=== PATIENT | female | born 1955 | race Caucasian/White ===

== ENCOUNTER 2017-06-13 15:49 | Emergency (ER) | payer OTHER ==
[~2017-06-13] VITALS: Wt 70.0 kg
[~2017-06-13 15:49] MED LIST: ASPI-650 PO; DIAZ10TA4 PO; HUMULOG INSULIN; LANTUS SC; LISI10TA2; METH500T8; NEURONTIN; PAIN MEDICINE PO; PRA40
--- NOTE | 2017-06-13 18:10 | ERD ---
ER Documentation Chief Complaint Chief Complaint REDNESS TO R EYE AREA HPI This 62-year-old female presents to emergency department with blood red conjunctiva, denies injury, reports was in the shower got soap in her eyes and started rubbing it, she noticed her eye was "blood red" after getting out of the shower. Patient reports tenderness, denies pain, discharge, change in vision, family denies change in behavior, or alteration in function, denies headache. ROS All systems reviewed and are negative except as per history of present illness. Medications Home Meds Reported Medications [Pain Medicine] No Conflict Check, PO 12/15/15 Aspirin (Aspirin) 81 Mg Tablet, 81 MG PO DAILY 08/08/12 Diazepam* (Diazepam*) 10 Mg Tablet, 10 MG PO DAIILY 08/08/12 Pravastatin Sodium* (Pravachol*) 40 Mg Tablet 08/08/12 Methocarbamol* (Methocarbamol*) 500 Mg Tablet 08/08/12 Lisinopril* (Lisinopril*) 10 Mg Tablet 08/08/12 [Neurontin] No Conflict Check 10/27/10 [Lantus ] No Conflict Check, 40 UNITS SC BID, 0 Refills 10/27/10 [Humulog Insulin] No Conflict Check, 0 Refills 10/27/10 Allergies Allergies: Coded Allergies: No Known Drug Allergies (Verified Allergy, Mild, 12/06/12) PMhx/Soc History of Surgery: Yes (HYSTERECTOMY, BACK SURGERY, CHOLECYSECTOMY) Anesthesia Reaction: No Hx Neurological Disorder: Yes (unable to walk no balance) Hx Respiratory Disorders: No Hx Cardiac Disorders: Yes (HYPERTENSION, HYPERLIPIDEMIA) Hx Psychiatric Problems: No Hx Miscellaneous Medical Probl: No Hx Alcohol Use: No Hx Substance Use: No Hx Tobacco Use: No Physical Exam Vitals Vital Signs Date Time Temp Pulse Resp B/P Pulse Ox O2 Delivery O2 Flow Rate FiO2 06/13/17 15:54 98.9 71 18 125/70 99 Vitals stable, triage notes reviewed Physical Exam Const: Well-nourished, well-appearing, well-hydrated 62-year-old female in no acute distress Head: Atraumatic Eye Exam: Visual Acuity: Right eye 20/40, left eye 20/50, both eyes 20/30 without corrective lenses Visual Cuadra: Intact in all four quadrants bilaterally Lac ducts/glands: No swelling Lids w/ evertion: Normal, no foreign body Conj/Paradox: Blood red conjunctiva right lateral canthus extending across to I midline. ENT: Normal External Ears, Nose and Mouth. Neck: Full range of motion..~ No meningismus. Resp: Clear to auscultation bilaterally Cardio: Regular rate and rhythm, no murmurs Abd: Soft, non tender, non distended. Normal bowel sounds Skin: No petechiae or rashes Back: No midline or flank tenderness Ext: No cyanosis, or edema Neuro: Alert and oriented Face: EOMI, face and pharynx with normal sensation and function Motor: Normal strength throughout Sensation: Normal sensation throughout Speech: Normal Cerebel: Normal coordination Normal gait Normal finger to nose Psych: Normal Mood and Affect Procedures/MDM This 62-year-old female presents to emergency department with blood red conjunctiva extending from lateral canthus to midline pupil, denies any trauma, injury, vision loss, discharge, or pain. Emergency room course includes history and physical exam, Snellen eye evaluation, right eye 20/40, left eye 20/ 50, both eyes 20/30. Neurologic exam negative for any changes. She has a subconjunctival hemorrhage from rubbing her eye in the shower today. Plan to discharge patient home with out any needed pharmacology, teaching handouts provided, return to emergency department for changes in symptoms, headache, discharge, change in vision, follow-up with primary care physician. Patient is stable with no new complaints during ER course, clinically there is no current evidence to suggest orbit trauma, angle-closure glaucoma, chemical injury, corneal ulcer, foreign body, pulmonary embolism or any other emergent condition appearing to require further evaluation or hospitalization. I feel the patient is stable for discharge at this time. I have discussed results, examination findings, the treatment plan with the patient and family present prior to discharge. Indications for emergent reevaluation, side effects of medication were also discussed. All questions were answered. Patient verbalizes understanding and agrees with plan of care. Departure Diagnosis: Primary Impression: Subconjunctival hemorrhage of right eye Condition: Good Patient Instructions: Subconjunctival Hemorrhage Referrals: [facility] () [facility] Additional Instructions: Thank you for for coming to Thank you for for coming to [facility] for your care today. Please ask your nurse or provider if you have questions about your care today and do not leave until all your questions have been answered. Please use any medications given as directed and follow-up with your doctor (or the doctor you were referred to) in the next 2-3 days. If you do not have a primary care doctor you may follow up at the [facility] (listed below). You may also use motrin and tylenol as needed for fever and/or pain unless instructed otherwise by your provider or nurse. Indications for more urgent follow-up have been discussed, but you may return to the Emergency Department at ANY time for any worrisome or worsening symptoms. If you have abdominal pain, please know that no test or exam you received is perfect and you should follow up within 8 hours for continued pain. If you had any imaging studies today, such as an X-Ray or CT Scan, these studies will be reviewed later by a radiologist. You will be called if there are important findings that were not identified today, so make sure the contact information you provided at registration is correct. If you received any narcotic pain control medicine today, such as Vicodin, Morphine or Dilaudid, your coordination and judgment may be affected for a number of hours. Please do not drive or operate heavy machinery, and you may want someone to assist you at home. If you were given a prescription for narcotic medication, be aware that it is very addictive- use sparingly and only if necessary. For your care today. Please ask your nurse or provider if you have questions about your care today and do not leave until all your questions have been answered. Please use any medications given as directed and follow-up with your doctor (or the doctor you were referred to) in the next 2-3 days. If you do not have a primary care doctor you may follow up at the [facility] [place] ( listed below). You may also use motrin and tylenol as needed for fever and/or pain unless instructed otherwise by your provider or nurse. Indications for more urgent follow-up have been discussed, but you may return to the Emergency Department at ANY time for any worrisome or worsening symptoms. If you have abdominal pain, please know that no test or exam you received is perfect and you should follow up within 8 hours for continued pain. If you had any imaging studies today, such as an X-Ray or CT Scan, these studies will be reviewed later by a radiologist. You will be called if there are important findings that were not identified today, so make sure the contact information you provided at registration is correct. If you received any narcotic pain control medicine today, such as Vicodin, Morphine or Dilaudid, your coordination and judgment may be affected for a number of hours. Please do not drive or operate heavy machinery, and you may want someone to assist you at home. If you were given a prescription for narcotic medication, be aware that it is very addictive- use sparingly and only if necessary. BALTA KINSEY Jun 13, 2017 18:10
== END 2017-06-13 18:28 | disposition home or self-care (01) ==
LOC: FTE 15:49
DX: H11.31 Conjunctival hemorrhage, right eye (principal); I10 Essential (primary) hypertension; Z79.82 Long term (current) use of aspirin
CPT/HCPCS: 99282

== ENCOUNTER 2018-10-23 12:36 | Emergency (ER) | payer OTHER ==
[~2018-10-23] VITALS: Wt 66.1 kg
[2018-10-23] MEDS ORDERED: ACETAMINOPHEN 325 MG TAB PO STA (12:43)
[2018-10-23] MEDS ORDERED: CEFTRIAXONE 1 GM/50 ML (PMX) 50 ML IVPB STA (12:43)
[2018-10-23] MEDS ORDERED: AZITHROMYCIN 500MG/NS (PMX) 250 ML IV STA (12:43)
[2018-10-23] MEDS ORDERED: SODIUM CHLORIDE 0.9% 1L BAG IV* STA (13:02)
[2018-10-23] MEDS ORDERED: NORT25CA PO (13:49)
[2018-10-23] MEDS ORDERED: INSU100C SQ ×3 (13:50→13:51)
[2018-10-23] MEDS ORDERED: ERGO500013 PO (13:51)
[2018-10-23] MEDS ORDERED: PRAV40TA76 PO (13:52)
[2018-10-23] MEDS ORDERED: DIAZ5TAB4 PO (13:52)
[2018-10-23] MEDS ORDERED: ASPI-903 PO (13:52)
[2018-10-23] MEDS ORDERED: GABA400C14 PO (13:52)
[2018-10-23] MEDS ORDERED: LISI10TA2 PO (13:53)
[2018-10-23] MEDS ORDERED: OMEP40CA6 PO (13:53)
[2018-10-23] MEDS ORDERED: INSU100I33 SC (13:54)
--- NOTE | 2018-10-23 15:25 | ERD ---
ER Documentation Chief Complaint Chief Complaint COUGH/SOB X3 WEEKS, FEVER HPI Patient is a 63-year-old female with hypertension and diabetes who presents with a cough. She has had a productive cough for the past 3 weeks. She has had fevers which started yesterday. She tried diabetic Tussin for the cough. She has not had any recent antibiotics. Upon review of old medical records this is the patient's third visit to the ER since 2010. ROS All systems reviewed and are negative except as per history of present illness. Medications Home Meds Reported Medications Insulin Glargine,Hum.rec.anlog (Basaglar Kwikpen U-100) 100 Unit/1 Ml Insuln.pen, 30 UNIT SC QAM, EA 10/23/18 Omeprazole* (Omeprazole*) 40 Mg Capsule.dr, 40 MG PO AC BREAKFAST, #30 CAP 10/23/18 Lisinopril* (Lisinopril*) 10 Mg Tablet, 10 MG PO DAILY, #30 TAB 10/23/18 Aspirin* (Aspirin* Chew) 81 Mg Tab.chew, 81 MG PO DAILY, TAB.CHEW 10/23/18 Pravastatin Sodium* (Pravastatin Sodium*) 40 Mg Tablet, 40 MG PO HS, TAB 10/23/18 Gabapentin* (Gabapentin*) 400 Mg Capsule, 400 MG PO TID, #90 CAP 10/23/18 Diazepam* (Diazepam*) 5 Mg Tablet, 7.5 MG PO QHS PRN for ANXIETY, TAB 10/23/18 Ergocalciferol (Vitamin D2) (VITAMIN D2) 50,000 Unit Capsule, 57045 UNIT PO WEEKLY, CAP 10/23/18 Insulin Lispro (Humalog) 100 Unit/1 Ml Cartridge, 5 UNIT SQ AC DINNER, EA 10/23/18 Insulin Lispro (Humalog) 100 Unit/1 Ml Cartridge, 5 UNIT SQ AC LUNCH, EA 10/23/18 Insulin Lispro (Humalog) 100 Unit/1 Ml Cartridge, 10 UNIT SQ QAM, EA 10/23/18 Nortriptyline Hcl* (Nortriptyline Hcl*) 25 Mg Capsule, 25 MG PO HS, CAP 10/23/18 Discontinued Reported Medications [Pain Medicine] No Conflict Check, PO 12/15/15 Aspirin (Aspirin) 81 Mg Tablet, 81 MG PO DAILY 08/08/12 Diazepam* (Diazepam*) 10 Mg Tablet, 10 MG PO DAIILY 08/08/12 Pravastatin Sodium* (Pravachol*) 40 Mg Tablet 08/08/12 Methocarbamol* (Methocarbamol*) 500 Mg Tablet 08/08/12 Lisinopril* (Lisinopril*) 10 Mg Tablet 08/08/12 [Neurontin] No Conflict Check 10/27/10 [Lantus ] No Conflict Check, 40 UNITS SC BID, 0 Refills 10/27/10 [Humulog Insulin] No Conflict Check, 0 Refills 10/27/10 Allergies Allergies: Coded Allergies: No Known Drug Allergies (Verified Allergy, Mild, 12/06/12) PMhx/Soc History of Surgery: Yes (HYSTERECTOMY, BACK SURGERY, CHOLECYSECTOMY) Anesthesia Reaction: No Hx Neurological Disorder: Yes (unable to walk no balance) Hx Respiratory Disorders: No Hx Cardiac Disorders: Yes (HYPERTENSION, HYPERLIPIDEMIA) Hx Psychiatric Problems: No Hx Miscellaneous Medical Probl: Yes (dm) Hx Alcohol Use: No Hx Substance Use: No Hx Tobacco Use: No Smoking Status: Never smoker FmHx Family History: No diabetes Physical Exam Vitals Vital Signs Date Temp Pulse Resp B/P (MAP) Pulse Ox O2 O2 Flow FiO2 Time Delivery Rate 10/23/18 99.4 104 18 103/71 97 Room Air 14:29 (82) 10/23/18 101.0 13:34 10/23/18 101.0 125 20 101/51 97 12:40 (68) Physical Exam Const: Mild distress Head: Atraumatic Eyes: Normal Conjunctiva ENT: Normal External Ears, Nose and Mouth. Neck: Full range of motion. No meningismus. Resp: Decreased breath sounds bilaterally Cardio: Tachycardic rate without murmur Abd: Soft, non tender, non distended. Normal bowel sounds Skin: No petechiae or rashes Back: No midline or flank tenderness Ext: No cyanosis, or edema Neur: Awake and alert Psych: Normal Mood and Affect Result Diagram: 10/23/18 1254 10/23/18 1254 Results 24 hrs Laboratory Tests Test 10/23/18 12:54 10/23/18 13:01 10/23/18 13:20 10/23/18 15:20 White Blood Count 10.7 10^3/ul Red Blood Count 3.81 10^6/ul Hemoglobin 11.3 g/dl Hematocrit 35.2 % Mean Corpuscular 92.4 fl Volume Mean Corpuscular 29.7 pg Hemoglobin Mean Corpuscular 32.1 g/dl Hemoglobin Concen t Red Cell 13.2 % Distribution Width Platelet Count 228 10^3/UL Mean Platelet 10.4 fl Volume Immature 0.500 % Granulocytes % Neutrophils % 80.2 % Lymphocytes % 10.2 % Monocytes % 8.9 % Eosinophils % 0.0 % Basophils % 0.2 % Nucleated Red 0.0 /100WBC Blood Cells % Immature 0.050 10^3/ul Granulocytes # Neutrophils # 8.6 10^3/ul Lymphocytes # 1.1 10^3/ul Monocytes # 1.0 10^3/ul Eosinophils # 0.0 10^3/ul Basophils # 0.0 10^3/ul Nucleated Red 0.0 10^3/ul Blood Cells # Prothrombin Time 12.7 Sec Prothrombin Time 1.0 Ratio INR International 0.94 Normalized Ratio Activated 44.6 Sec Partial Thrombopl ast Time Sodium Level 137 mmol/L Potassium Level 3.6 mmol/L Chloride Level 100 mmol/L Carbon Dioxide 27 mmol/L Level Anion Gap 10 Blood Urea 17 mg/dl Nitrogen Creatinine 0.85 mg/dl Est Glomerular > 60 mL/min Filtrat Rate mL/min Glucose Level 231 mg/dl Calcium Level 9.0 mg/dl Total Bilirubin 0.5 mg/dl Direct Bilirubin 0.00 mg/dl Indirect 0.5 mg/dl Bilirubin Aspartate Amino 27 IU/L Transf (AST/SGOT) Alanine 25 IU/L Aminotransferase (ALT/SGPT) Alkaline 120 IU/L Phosphatase Troponin I < 0.012 ng/ml Total Protein 7.7 g/dl Albumin 4.0 g/dl Globulin 3.70 g/dl Albumin/Globulin 1.08 Ratio POC Venous 2.4 mmol/L 2.1 mmol/L Lactate Urine Color STRAW Urine Clarity CLEAR Urine pH 6.0 Urine Specific 1.006 [place] Urine Ketones NEGATIVE mg/dL Urine Nitrite NEGATIVE mg/dL Urine Bilirubin NEGATIVE mg/dL Urine NEGATIVE mg/dL Urobilinogen Urine Leukocyte NEGATIVE Martina/ul Esterase Urine Hemoglobin NEGATIVE mg/dL Urine Glucose NEGATIVE mg/dL Urine Total NEGATIVE mg/dl Protein Current Medications Medications Dose Sig/Claude Start Time Status Last (Trade) Ordered Route PRN Stop Time Admin Dose Reason Admin 650 mg ONCE STAT 10/23/18 DC 10/23/18 Acetaminophen PO 12:43 13:34 (Tylenol 10/23/18 12:44 Tab) Ceftriaxone 50 ml @ ONCE STAT 10/23/18 DC 10/23/18 Sodium 100 mls/hr IVPB 12:43 13:33 10/23/18 13:12 Azithromycin 250 ml @ ONCE STAT 10/23/18 DC 10/23/18 250 mls/hr IV 12:43 14:42 10/23/18 13:42 Sodium 1,980 ml BOLUS OVER 2 10/23/18 DC 10/23/18 Chloride HOURS STAT 13:02 13:34 (NS) IV* 10/23/18 13:03 Procedures/MDM Chest x-ray read by radiology. EKG read by me: Rate/Rhythm: Tachycardia Intervals: Normal Impression: Tachycardia without ischemia Sepsis Documentation: Patient's infectious symptoms have not stabilized and the patient is at risk of rapid decompensation. The patient will be admitted for careful hydration, antibiotic therapy, and infectious source control. SEVERE SEPSIS CRITERIA: Infectious source: Pneumonia End organ damage indicated by: Lactate greater than 2 SEPSIS MANAGEMENT Time of recognition of sepsis: 1301. Time of recognition of severe sepsis: 1301. Time of recognition of septic shock: No septic shock at this time. 3 HOUR BUNDLE Blood cultures x 2 before broad-spectrum antibiotics: Yes 30 ml/kg NS bolus completed Initial lactate 2.4 Repeat lactate 2.1 SEPTIC SHOCK ASSESSMENT: No lactic acid > 4.0 No persistent hypotension (SBP < 90 or 40 mmHg drop, MAP < 65) despite 30 mL/kg IV fluid bolus VOLUME REASSESSMENT FOR SEPTIC SHOCK: No septic shock PERSISTENT HYPOTENSION TREATMENT: Comfort care no Central line not Required Vasopressor started not required I considered further perfusion assessment with CVP measurement, SCVO2, bedside ultrasound volume assessment, passive leg raise, trial of further fluid bolus. And proceeded with 30 ml/kg fluid bolus of NSS, broad spectrum antibiotics, and admission. The patient will be transferred to [facility] with Dr. Farley is the accepting physician as the patient has [employer] insurance. CRITICAL CARE Critical care time 35 minutes Emergent fluid management while maintaining close respiratory support. Provi jerson of immediate and broad-spectrum antibiotic therapy. Simultaneous assessment for possible sources in order to direct targeted therapy. Consideration for invasive and chemical support to prevent cardiopulmonary collapse. Critical care time is independent of procedures performed. Departure Diagnosis: Primary Impression: Severe sepsis Additional Impression: Pneumonia Pneumonia type: due to unspecified organism Laterality: unspecified laterality Lung location: unspecified part of lung Qualified Codes: J18.9 - Pneumonia, unspecified organism Condition: Serious VICKI CLEMENT MD Oct 23, 2018 15:25
[2018-10-23 16:41] VITALS: BP 117/73; PULSE 103; RESP 17
== END 2018-10-23 18:10 | disposition short-term general hospital (02) ==
LOC: E/R 12:36
DX: A41.9 Sepsis, unspecified organism (principal); I10 Essential (primary) hypertension; E11.9 Type 2 diabetes mellitus without complications; R65.20 Severe sepsis without septic shock; J18.9 Pneumonia, unspecified organism; Z79.4 Long term (current) use of insulin; Z79.82 Long term (current) use of aspirin
CPT/HCPCS: 71045; 80053; 81003; 83605; 84484; 85025; 85610; 85730; 87040; 87086; 87400; 93005; J0456; J0696; J7030; Z7610; 36415; 96374; 96375

== ENCOUNTER 2018-12-14 22:35 | Emergency (ER) | payer OTHER ==
[~2018-12-14] VITALS: Ht 147.3 cm; Wt 67.3 kg
[~2018-12-14 22:35] MED LIST changes: -ASPI-650 PO; +ASPI-903 PO; -DIAZ10TA4 PO; +DIAZ5TAB4 PO; +ERGO500013 PO; +GABA400C14 PO; -HUMULOG INSULIN; +INSU100C SQ; +INSU100I33 SC; -LANTUS SC; -LISI10TA2; +LISI10TA2 PO; -METH500T8; -NEURONTIN; +NORT25CA PO; +OMEP40CA6 PO; -PAIN MEDICINE PO; -PRA40; +PRAV40TA76 PO
[2018-12-14 22:41] VITALS: Ht 147.3 cm; Wt 67.3 kg
[2018-12-15] MEDS ORDERED: SOD CHLORIDE 0.9% 500 ML IV STA (02:56)
--- NOTE | 2018-12-15 05:33 | ERD ---
ER Documentation Chief Complaint Chief Complaint weakness and near syncope at home X 30 minutes ago HPI This is a 63-year-old malignancy. Annual with her . Apparently she was also very hypotensive with positive blood pressure. She denies any fevers chills nausea vomiting. Denies any chest pain. Did complain of mild palp itations. No fevers or chills. No focal neurologic complaints. ROS All systems reviewed and are negative except as per history of present illness. Medications Home Meds Reported Medications Insulin Glargine,Hum.rec.anlog (Basaglar Kwikpen U-100) 100 Unit/1 Ml Insuln.pen, 30 UNIT SC QAM, EA 10/23/18 Omeprazole* (Omeprazole*) 40 Mg Capsule.dr, 40 MG PO AC BREAKFAST, #30 CAP 10/23/18 Lisinopril* (Lisinopril*) 10 Mg Tablet, 10 MG PO DAILY, #30 TAB 10/23/18 Aspirin* (Aspirin* Chew) 81 Mg Tab.chew, 81 MG PO DAILY, TAB.CHEW 10/23/18 Pravastatin Sodium* (Pravastatin Sodium*) 40 Mg Tablet, 40 MG PO HS, TAB 10/23/18 Gabapentin* (Gabapentin*) 400 Mg Capsule, 400 MG PO TID, #90 CAP 10/23/18 Diazepam* (Diazepam*) 5 Mg Tablet, 7.5 MG PO QHS PRN for ANXIETY, TAB 10/23/18 Ergocalciferol (Vitamin D2) (VITAMIN D2) 50,000 Unit Capsule, 92898 UNIT PO WEEKLY, CAP 10/23/18 Insulin Lispro (Humalog) 100 Unit/1 Ml Cartridge, 5 UNIT SQ AC DINNER, EA 10/23/18 Insulin Lispro (Humalog) 100 Unit/1 Ml Cartridge, 5 UNIT SQ AC LUNCH, EA 10/23/18 Insulin Lispro (Humalog) 100 Unit/1 Ml Cartridge, 10 UNIT SQ QAM, EA 10/23/18 Nortriptyline Hcl* (Nortriptyline Hcl*) 25 Mg Capsule, 25 MG PO HS, CAP 10/23/18 Allergies Allergies: Coded Allergies: No Known Drug Allergies (Verified Allergy, Mild, 12/06/12) PMhx/Soc History of Surgery: Yes (HYSTERECTOMY, BACK SURGERY, CHOLECYSECTOMY) Anesthesia Reaction: No Hx Neurological Disorder: Yes (unable to walk no balance) Hx Respiratory Disorders: No Hx Cardiac Disorders: Yes (HYPERTENSION, HYPERLIPIDEMIA) Hx Psychiatric Problems: No Hx Miscellaneous Medical Probl: No Hx Alcohol Use: No Hx Substance Use: No Hx Tobacco Use: No Smoking Status: Never smoker Physical Exam Vitals Vital Signs Date Temp Pulse Resp B/P (MAP) Pulse Ox O2 O2 Flow FiO2 Time Delivery Rate 12/15/18 90 23 122/71 99 Room Air 05:26 (88) 12/15/18 97 18 123/68 98 Room Air 03:06 (86) 12/14/18 97.2 89 18 97/60 (72) 97 22:41 Physical Exam Const: No acute distress Head: Atraumatic Eyes: Normal Conjunctiva ENT: Normal External Ears, Nose and Mouth. Neck: Full range of motion. No meningismus. Resp: Clear to auscultation bilaterally Cardio: Regular rate and rhythm, no murmurs Abd: Soft, non tender, non distended. Normal bowel sounds Skin: No petechiae or rashes Back: No midline or flank tenderness Ext: No cyanosis, or edema Neur: Awake and alert Psych: Normal Mood and Affect Result Diagram: 12/15/18 0310 12/15/18 0310 Results 24 hrs Laboratory Tests Test 12/15/18 03:10 12/15/18 03:26 White Blood Count 7.9 10^3/ul Red Blood Count 4.12 10^6/ul Hemoglobin 12.2 g/dl Hematocrit 37.7 % Mean Corpuscular Volume 91.5 fl Mean Corpuscular Hemoglobin 29.6 pg Mean Corpuscular Hemoglobin Concent 32.4 g/dl Red Cell Distribution Width 12.9 % Platelet Count 226 10^3/UL Mean Platelet Volume 10.8 fl Immature Granulocytes % 0.400 % Neutrophils % 77.7 % Lymphocytes % 14.9 % Monocytes % 6.6 % Eosinophils % 0.0 % Basophils % 0.4 % Nucleated Red Blood Cells % 0.0 /100WBC Immature Granulocytes # 0.030 10^3/ul Neutrophils # 6.1 10^3/ul Lymphocytes # 1.2 10^3/ul Monocytes # 0.5 10^3/ul Eosinophils # 0.0 10^3/ul Basophils # 0.0 10^3/ul Nucleated Red Blood Cells # 0.0 10^3/ul Sodium Level 139 mmol/L Potassium Level 4.5 mmol/L Chloride Level 102 mmol/L Carbon Dioxide Level 27 mmol/L Anion Gap 10 Blood Urea Nitrogen 23 mg/dl Creatinine 0.77 mg/dl Est Glomerular Filtrat Rate mL/min > 60 mL/min Glucose Level 271 mg/dl Calcium Level 9.4 mg/dl Troponin I < 0.012 ng/ml Bedside Glucose 268 mg/dL Current Medications Medications Dose Sig/Claude Start Time Status Last (Trade) Ordered Route PRN Stop Time Admin Dose Reason Admin Sodium 500 ml @ Q1H STAT 12/15/18 DC 12/15/18 Chloride 500 mls/hr IV 02:56 12/15/18 03:19 03:55 Procedures/MDM EKG: Rate/Rhythm: [Normal Sinus Rhythm] QRS, ST, T-waves: [No changes consistent w/ acute ischemia] Impression: [No evidence of ischemia or arrhythmia] Chest X-ray 1V Interpreted by me: Soft Tissue: No acute abnormalities Bones: No acute abnormalities Mediastinum/Cardiac Silhouette/Lungs: [No acute abnormalities] Medical decision making: Patient's syncopal symptoms are unstable at this time and require inpatient workup. No evidence of PE or dissection at this time but occult ischemia or fatal dysrhythmia cannot be ruled out. Departure Diagnosis: Primary Impression: Near syncope Condition: Serious RITU PEREZ December 15, 2018 05:33
[2018-12-15] MEDS ORDERED: INSU100I12 SQ (06:33)
[2018-12-15] MEDS ORDERED: GABAPENTIN 100 MG CAP PO ONE (08:00)
--- NOTE | 2018-12-15 09:00 | PDOCDIS ---
Discharge Instructions CONDITION [id number] Patient Condition: [id number] Good HOME CARE INSTRUCTIONS: [id number] Your diet recommendation is: [id number] diabetic ACTIVITY: [id number] Activity Restrictions: [id number] Slowly Increase Activity FOLLOW UP/APPOINTMENTS Follow-up Plan pcp 1 week PRAVEEN CASTREJON MD December 15, 2018 09:00
--- NOTE | 2018-12-15 09:53 | CONS ---
DATE OF ADMISSION: 12/14/2018 DATE OF CONSULTATION: 12/15/2018 CHIEF COMPLAINT: Near syncope. HISTORY OF PRESENT ILLNESS: A 63-year-old female was brought in by the family members with a complai nt of lightheadedness and near syncope while she was using the restroom. The patient was apparently pale and diaphoretic. On review of systems, she denies chest pain. No shortness of breath. No foca l weakness or numbness. No rg syncope. Her checked her blood pressure at the time of the incident and it was in the 60s. He decided to bring her to the emergency room. Initial evaluation revealed a blood pressure of 97/60 with a pulse of 89. Patient received IV fluids with improvement i n her blood pressure. White blood cell count was 7.9, hemoglobin was 12.2. The patient takes Lisino pril 10 mg daily. PAST MEDICAL HISTORY: 1. Hypertension. 2. Type 2 diabetes mellitus. 3. Diabetic nephropathy. 4. Hyperlipidemia. MEDICATIONS PRIOR TO ADMISSION: 1. Aspirin 81 mg daily. 2. Diazepam 7.5 mg at bedtime as needed. 3. Gabapentin 400 mg 3 times daily. 4. Insulin 30 units subcu. q.a.m. 5. Nortriptyline 25 mg p.o. at bedtime. 6. Atorvastatin 40 mg p.o. at bedtime. SOCIAL HISTORY: Patient lives at home. She denies tobacco or alcohol use. PHYSICAL EXAMINATION: GENERAL: Well-developed, well-nourished female who, in no apparent distress. VITAL SIGNS: Blood pressure 118/62, pulse 90, respiration 17. Saturation 100%. HEENT: Extraocular muscles are intact. Pupils are equal and reactive to light bilaterally. Sclerae are anicteric. Oropharynx is clear and moist. NECK: Supple, no JVD, no carotid bruits. LUNGS: Clear to auscultation bilaterally. CARDIAC: Regular rate and rhythm. No murmurs, rubs or gallops. ABDOMEN: Soft, nontender, nondistended, normoactive bowel sounds. EXTREMITIES: No clubbing, cyanosis, or edema. NEUROLOGICAL: Grossly nonfocal. IMAGING STUDIES: Chest x-ray was unremarkable. CAT scan of the brain showed mild generalized cerebr al and cerebellar volume loss without evidence of intracranial masses or hemorrhage. ASSESSMENT: 1. A 63-year-old female with a near syncopal episode due to hypotension, resolved following hydratio n. 2. Type 2 diabetes mellitus. 3. Peripheral neuropathy. PLAN: 1. Discharge home. 2. Discontinue Lisinopril. 3. Follow up with primary care provider for repeat blood pressure check off lisinopril. Dictated By: PRAVEEN KAUFMAN/NTS Conf#: [id number] DID#: [id number] CC: ANGELA NEW MD;*EndCC*
[2018-12-15 10:21] VITALS: BP 118/79; PULSE 93; RESP 17
== END 2018-12-15 10:22 | disposition home or self-care (01) ==
LOC: E/R 22:35 → CANRESERV 12-15 09:20 → E/R 12-15 10:22
DX: R55 Syncope and collapse (principal); I10 Essential (primary) hypertension; E11.9 Type 2 diabetes mellitus without complications; Z79.4 Long term (current) use of insulin
CPT/HCPCS: 36415; 70450; 71045; 80048; 82962; 84484; 85025; 93005; J7040; Z7502; Z7610

== ENCOUNTER 2019-02-14 13:17 | Emergency (ER) | payer OTHER ==
[~2019-02-14] VITALS: Ht 147.3 cm; Wt 66.8 kg
[~2019-02-14 13:17] MED LIST changes: -INSU100C SQ; +INSU100I12 SQ; -LISI10TA2 PO
[2019-02-14 13:23] VITALS: RESP 17; Ht 147.3 cm; Wt 66.8 kg
[2019-02-14] MEDS ORDERED: IBUPROFEN 800 MG TAB PO ONE (14:00)
--- NOTE | 2019-02-14 14:14 | ERD ---
ER Documentation Chief Complaint Chief Complaint FEVER AT HOME, BODYACHES, THROAT PAIN, MOUTH BLISTERS, ONSET 3 DAYS HPI 64-year-old female who presents with her family. The patient is approximately 3 to 5 days of symptoms that include cough congestion sore throat, subjective fevers and generalized malaise. She was seen in urgent care several days ago and started on amoxicillin for unclear bacterial infection. Patient however has persistent symptoms. The patient is also noted a blister on the roof of her soft palate. No other sick contacts, no lesions to the palms or soles. Patient denies any significant shortness of breath. She does have a remote history of pneumonia. ROS All systems reviewed and are negative except as per history of present illness. Medications Home Meds Active Scripts Phenol* (Chloraseptic* [place]) 177 Ml [place].pump, 2 SPRAY MT Q2H PRN for SORE THROAT, #1 BOTTLE Prov:YNES ARCE MD 02/14/19 Ibuprofen* (Motrin*) 600 Mg Tab, 600 MG PO Q6H PRN for PAIN AND OR ELEVATED TEMP, #30 TAB Prov:YNES ARCE MD 02/14/19 Reported Medications Insulin Lispro (Humalog Kwikpen U-100) 100 Unit/1 Ml Insuln.pen, 0 SQ AC A, EA SLIDING SCALE 12/15/18 Insulin Glargine,Hum.rec.anlog (Basaglar Kwikpen U-100) 100 Unit/1 Ml Insuln.pen, 30 UNIT SC QAM, EA 10/23/18 Omeprazole* (Omeprazole*) 40 Mg Capsule.dr, 40 MG PO AC BREAKFAST, #30 CAP 10/23/18 Aspirin* (Aspirin* Chew) 81 Mg Tab.chew, 81 MG PO DAILY, TAB.CHEW 10/23/18 Pravastatin Sodium* (Pravastatin Sodium*) 40 Mg Tablet, 40 MG PO HS, TAB 10/23/18 Gabapentin* (Gabapentin*) 400 Mg Capsule, 400 MG PO TID, #90 CAP 10/23/18 Diazepam* (Diazepam*) 5 Mg Tablet, 7.5 MG PO QHS PRN for ANXIETY, TAB 10/23/18 Ergocalciferol (Vitamin D2) (VITAMIN D2) 50,000 Unit Capsule, 12552 UNIT PO WEEKLY, CAP 10/23/18 Nortriptyline Hcl* (Nortriptyline Hcl*) 25 Mg Capsule, 25 MG PO HS, CAP 10/23/18 Allergies Allergies: Coded Allergies: No Known Drug Allergies (Verified Allergy, Mild, 02/14/19) PMhx/Soc History of Surgery: Yes (HYSTERECTOMY, BACK SURGERY, CHOLECYSECTOMY) Anesthesia Reaction: No Hx Neurological Disorder: Yes (unable to walk no balance) Hx Respiratory Disorders: No Hx Cardiac Disorders: Yes (HYPERTENSION, HYPERLIPIDEMIA) Hx Psychiatric Problems: No Hx Miscellaneous Medical Probl: No Hx Alcohol Use: No Hx Substance Use: No Hx Tobacco Use: No FmHx Family History: No diabetes Physical Exam Vitals Vital Signs Date Temp Pulse Resp B/P (MAP) Pulse Ox O2 O2 Flow FiO2 Time Delivery Rate 02/14/19 112 124/82 14:46 (96) 02/14/19 99.5 116 17 136/71 94 13:23 (92) Physical Exam General: Well developed, well nourished, no acute distress Head: Normocephalic, atraumatic. Eyes: Pupils equally reactive, EOM intact ENT: Moist mucous membranes, 1-2 small vesicles noted on the soft palate of the posterior pharynx. Uvula is midline, no tonsillar swelling or exudates, tolerating secretions, no stridor Neck: Supple, no lymphadenopathy Respiratory: Lungs clear bilaterally, no distress Cardiovascular: RRR, no murmurs, rubs, or gallops Abdominal: Soft, non-tender, non-distended, no peritoneal signs : Deferred MSK: No edema, no unilateral swelling, 5/5 strength Neurologic: Alert and oriented, moving all extremities, normal speech, no focal weakness, no cerebellar signs Skin: No rash, no lesions to the palms or soles Psych: Normal mood Results 24 hrs Laboratory Tests Test 02/14/19 14:21 Bedside Urine pH (LAB) 5.5 Bedside Urine Protein (LAB) Negative Bedside Urine Glucose (UA) 0.1% Bedside Urine Ketones (LAB) Negative Bedside Urine Blood Trace-intact Bedside Urine Nitrite (LAB) Negative Bedside Urine Leukocyte Esterase (L Negative Current Medications Medications Dose Sig/Claude Start Time Status Last (Trade) Ordered Route PRN Stop Time Admin Dose Reason Admin Ibuprofen 800 mg ONCE ONCE 02/14/19 DC 02/14/19 (Motrin) PO 14:00 7/7/19 14:31 14:01 Procedures/MDM EKG, MONITORS, & DIAGNOSTIC IMAGIN view chest x-ray: IMPRESSION: 1. Mild aortic tortuosity without CHF. 2. Suboptimal inspiration. 3. No change to the 4 mm granuloma projecting to the lateral left lung base. The lung wolf and pleural spaces otherwise remain unremarkable. 4. Mild degenerative enthesopathy of the thoracic spine. LAB INTERPRETATION: I reviewed the laboratory testing and it shows no evidence of acute process MEDICAL DECISION MAKING: The patient's presentation seems to be very consistent with viral upper respiratory tract infection. The patient's vesicular lesions seem to be very consistent with coxsackie infection. Likely herpangina. No signs or symptoms concerning for xzao-wgyv-oym-mouth disease. The patient does have a cough and borderline saturation x-ray imaging would be appropriate to rule out pneumonia though the lung sounds are crystal-clear on clinical examination. Patient is afebrile here in the emergency room with subtle tachycardia. The patient is tolerating oral intake and oral hydration will be initiated. Patient is otherwise well-appearing in the emergency room setting. ER COURSE: * The patient's heart rate improved with a nonsteroidal anti-inflammatory. At this point the patient is safe for discharge. Again this is most consistent with likely viral process. Return precautions were discussed and understood. CONSULTATION: None DISPOSITION PLAN: The patient does not have an identifiable emergent medical condition that warrants inpatient hospitalization at this time. The patient is deemed safe for discharge with outpatient follow-up. We discussed follow up with the patient's primary care doctor within 24 to 48 hours as needed. We also discussed return to the emergency room for worsening symptoms or worsening condition. Outpatient referral: None required Discharge Medications: Motrin, Chloraseptic spray Departure Diagnosis: Primary Impression: Viral URI Additional Impression: Acute herpangina Condition: Stable YNES ARCE MD Feb 14, 2019 14:14
[2019-02-14 14:46] VITALS: BP 124/82; PULSE 112
[2019-02-14] MEDS ORDERED: PHEN177S43 MT (14:47)
[2019-02-14] MEDS ORDERED: IBUP-1542 PO (14:47)
== END 2019-02-14 15:28 | disposition home or self-care (01) ==
LOC: E/R 13:17
DX: J06.9 Acute upper respiratory infection, unspecified (principal); B08.5 Enteroviral vesicular pharyngitis; I10 Essential (primary) hypertension; E11.9 Type 2 diabetes mellitus without complications; Z79.4 Long term (current) use of insulin
CPT/HCPCS: 71046; 81003; Z7502; Z7610